=== PATIENT | female | born 1960 | race African-American/Black ===

== ENCOUNTER 2020-11-14 09:30 | Emergency (ER) | payer BC ==
[2020-11-14] MEDS ORDERED: Sodium Chloride 0.9% 1,000 ML ONE (10:12)
[2020-11-14] MEDS ORDERED: Ondansetron PF 4 MG/2 ML Vial ONE (10:12)
[2020-11-14 10:27] LABS: Band 2 % (5-11); Eosinophils 3 % (0-10); Hemoglobin 14.6 g/dL (12.0-16.0); Lymphocytes 22 % (21-51); MDiff Complete? YES; Mean Corpuscular HGB CONC 30.5 g/dL (32.0-36.0); Mean Corpuscular Hemoglobin 29.3 pg (27.0-31.0); Mean Corpuscular Volume 95.9 fL (78.0-98.0); Mean Platelet Volume 8.3 fL (7.4-10.4); Monocytes 1 % (0-10); Neutrophil 70 % (42-75); Platelet Count 407 thou/uL (130-400); Platelet Morphology Comment Appears Adequate; RBC Distribution Width 13.5 % (11.5-14.5); RBC Morphology Normal; Reactive Lymphocytes 2 % (0-10); Red Blood Cell (RBC) Count 4.98 mill/uL (4.20-5.40); White Blood Cell (WBC) Count 7.8 thou/uL (4.8-10.8)
[2020-11-14 10:30] LABS: ALT (SGPT) 10 U/L (8-55); AST (SGOT) 13 U/L (5-34); Albumin 4.1 g/dL (3.5-5.0); Alkaline Phosphatase 87 U/L (40-110); Anion Gap 14 mmol/L (10-20); BUN (Urea Nitrogen) 11 mg/dL (9.8-20.1); Bilirubin, Total 0.7 mg/dL (0.2-1.2); Calc. Creatinine Clearance 0 mL/min (70-130); Calcium 9.1 mg/dL (7.8-10.44); Carbon Dioxide 25 mmol/L (22-29); Chloride 108 mmol/L (98-107); Globulin 3.1 g/dL (2.4-3.5); Glucose 130 mg/dL (70-105); Lipase 29 U/L (8-78); Potassium 3.8 mmol/L (3.5-5.1); Protein, Total 7.2 g/dL (6.0-8.3); Sodium 143 mmol/L (136-145)
== END 2020-11-14 11:26 | disposition home or self-care (01) ==
LOC: MADERS 09:30
DX: R11.0 Nausea (principal); E11.9 Type 2 diabetes mellitus without complications; E78.5 Hyperlipidemia, unspecified; E78.00 Pure hypercholesterolemia, unspecified; I10 Essential (primary) hypertension
CPT/HCPCS: 36416; 80053; 83690; 84484; 85025; 93005; 96374; J2405; J7050